=== PATIENT | male | born 1960 | race Caucasian/White ===

== ENCOUNTER 2023-08-27 13:15 | Outpatient (CLI) | payer OTHER, SELFPAY | END 2023-08-27 13:16 | disposition home or self-care (01) | PROVIDERS: PCP Family Medicine; Visit Provider Nurse Practitioner Family | DX: I87.312 Chronic venous hypertension (idiopathic) with ulcer of left lower extremity (principal); I89.0 Lymphedema, not elsewhere classified; L97.822 Non-pressure chronic ulcer of other part of left lower leg with fat layer exposed; E66.9 Obesity, unspecified; Z68.39 Body mass index [BMI] 39.0-39.9, adult | CPT/HCPCS: 11042; 87070; G0463 ==

== ENCOUNTER 2023-09-03 14:49 | Outpatient (CLI) | payer OTHER, SELFPAY ==
--- NOTE | 2023-09-03 16:00 | US_ITS ---
Patient: YOLIE FUENTES Facility:?[facility] Patient ID:?[id number] Site Patient ID:?[id number]. Site :?[id number] Study:?US-Extremity Left LEV LT-09/03/2023 4:43:10 PM Ordering Physician:HOWIE TOMAS CNP Final Report: INDICATION: Leg pain and swelling. TECHNIQUE: Ultrasound venous duplex lower left extremity. Compression venous exam was performed using hanson-scale, color Doppler, and spectral Doppler analysis. COMPARISON: None. FINDINGS: Deep veins: Limited evaluation of the deep veins of the calf secondary to edema and bandage. Sonographic imaging demonstrates the left common femoral, deep femoral, superficial femoral, popliteal and the contralateral right common femoral veins to be fully compressible with normal color Doppler blood flow. Superficial veins: Greater saphenous vein is fully compressible. No popliteal cyst. IMPRESSION: Limited evaluation of the deep veins of the calf secondary to edema and bandage. Otherwise, no acute DVT in the visualized left lower extremity deep veins. Dictated by Pavan Gamez MD @ 09/03/2023 5:03:28 PM Signed by:?Pavan Gamez MD @09/03/2023 5:03:28 PM (Electronic Signature)
== END 2023-09-03 14:50 | disposition home or self-care (01) ==
PROVIDERS: PCP Family Medicine; Visit Provider Nurse Practitioner Family
DX: I87.312 Chronic venous hypertension (idiopathic) with ulcer of left lower extremity (principal); L97.828 Non-pressure chronic ulcer of other part of left lower leg with other specified severity; I89.0 Lymphedema, not elsewhere classified; M79.662 Pain in left lower leg
CPT/HCPCS: 93971; G0463

== ENCOUNTER 2023-09-10 15:46 | Outpatient (CLI) | payer OTHER, SELFPAY | END 2023-09-10 15:47 | disposition home or self-care (01) | LOC: WOUND 15:46 | PROVIDERS: PCP Family Medicine; Visit Provider Nurse Practitioner Family | DX: I87.312 Chronic venous hypertension (idiopathic) with ulcer of left lower extremity (principal); I89.0 Lymphedema, not elsewhere classified; L97.822 Non-pressure chronic ulcer of other part of left lower leg with fat layer exposed | CPT/HCPCS: 11042 ==

== ENCOUNTER 2023-09-13 15:50 | Outpatient (CLI) | payer OTHER, SELFPAY | END 2023-09-13 15:51 | disposition home or self-care (01) | LOC: WOUND 15:50 | PROVIDERS: PCP Family Medicine; Visit Provider Nurse Practitioner Family | DX: I87.312 Chronic venous hypertension (idiopathic) with ulcer of left lower extremity (principal); I89.0 Lymphedema, not elsewhere classified; L97.822 Non-pressure chronic ulcer of other part of left lower leg with fat layer exposed | CPT/HCPCS: 29581 ==

== ENCOUNTER 2023-09-17 15:43 | Outpatient (CLI) | payer OTHER, SELFPAY | END 2023-09-17 15:44 | disposition home or self-care (01) | LOC: WOUND 15:43 | PROVIDERS: PCP Family Medicine; Visit Provider Nurse Practitioner Family | DX: I87.312 Chronic venous hypertension (idiopathic) with ulcer of left lower extremity (principal); I89.0 Lymphedema, not elsewhere classified; L97.822 Non-pressure chronic ulcer of other part of left lower leg with fat layer exposed | CPT/HCPCS: 97597 ==

== ENCOUNTER 2023-09-20 15:31 | Outpatient (CLI) | payer OTHER, SELFPAY | END 2023-09-20 15:32 | disposition home or self-care (01) | LOC: WOUND 15:31 | PROVIDERS: PCP Family Medicine; Visit Provider Nurse Practitioner Family | DX: I87.312 Chronic venous hypertension (idiopathic) with ulcer of left lower extremity (principal); I89.0 Lymphedema, not elsewhere classified; L97.222 Non-pressure chronic ulcer of left calf with fat layer exposed | CPT/HCPCS: 29581 ==

== ENCOUNTER 2023-09-27 12:58 | Outpatient (CLI) | payer OTHER, SELFPAY | END 2023-09-27 12:59 | disposition home or self-care (01) | LOC: WOUND 12:58 | PROVIDERS: PCP Family Medicine; Visit Provider Nurse Practitioner Family | DX: I89.0 Lymphedema, not elsewhere classified (principal); L97.822 Non-pressure chronic ulcer of other part of left lower leg with fat layer exposed; I87.312 Chronic venous hypertension (idiopathic) with ulcer of left lower extremity | CPT/HCPCS: 11042 ==

== ENCOUNTER 2023-10-01 15:17 | Outpatient (CLI) | payer OTHER, SELFPAY | END 2023-10-01 15:18 | disposition home or self-care (01) | LOC: WOUND 15:17 | PROVIDERS: PCP Family Medicine; Visit Provider Nurse Practitioner Family | DX: I87.312 Chronic venous hypertension (idiopathic) with ulcer of left lower extremity (principal); I89.0 Lymphedema, not elsewhere classified; L97.822 Non-pressure chronic ulcer of other part of left lower leg with fat layer exposed | CPT/HCPCS: 11042 ==

== ENCOUNTER 2023-10-08 15:48 | Outpatient (CLI) | payer OTHER, SELFPAY | END 2023-10-08 15:49 | disposition home or self-care (01) | LOC: WOUND 15:48 | PROVIDERS: PCP Family Medicine; Visit Provider Family Medicine | DX: I87.312 Chronic venous hypertension (idiopathic) with ulcer of left lower extremity (principal); I89.0 Lymphedema, not elsewhere classified; L97.828 Non-pressure chronic ulcer of other part of left lower leg with other specified severity; Z72.0 Tobacco use | CPT/HCPCS: G0463 ==

== ENCOUNTER 2023-10-15 15:51 | Outpatient (CLI) | payer OTHER, SELFPAY | END 2023-10-15 15:52 | disposition home or self-care (01) | LOC: WOUND 15:51 | PROVIDERS: PCP Family Medicine; Visit Provider Nurse Practitioner Family | DX: I87.312 Chronic venous hypertension (idiopathic) with ulcer of left lower extremity (principal); I89.0 Lymphedema, not elsewhere classified; L97.822 Non-pressure chronic ulcer of other part of left lower leg with fat layer exposed | CPT/HCPCS: 97597 ==

== ENCOUNTER 2023-10-22 15:50 | Outpatient (CLI) | payer OTHER, SELFPAY | END 2023-10-22 15:51 | disposition home or self-care (01) | LOC: WOUND 15:50 | PROVIDERS: PCP Family Medicine; Visit Provider Nurse Practitioner Family | DX: I87.312 Chronic venous hypertension (idiopathic) with ulcer of left lower extremity (principal); L97.822 Non-pressure chronic ulcer of other part of left lower leg with fat layer exposed; I89.0 Lymphedema, not elsewhere classified; Z72.0 Tobacco use | CPT/HCPCS: 97597 ==

== ENCOUNTER 2023-10-29 15:45 | Outpatient (CLI) | payer OTHER, SELFPAY | END 2023-10-29 15:46 | disposition home or self-care (01) | LOC: WOUND 15:45 | PROVIDERS: PCP Family Medicine; Visit Provider Nurse Practitioner Family | DX: I87.312 Chronic venous hypertension (idiopathic) with ulcer of left lower extremity (principal); L97.822 Non-pressure chronic ulcer of other part of left lower leg with fat layer exposed; I89.0 Lymphedema, not elsewhere classified | CPT/HCPCS: 97597 ==

== ENCOUNTER 2023-11-05 15:48 | Outpatient (CLI) | payer OTHER, SELFPAY | END 2023-11-05 15:49 | disposition home or self-care (01) | LOC: WOUND 15:48 | PROVIDERS: PCP Family Medicine; Visit Provider Nurse Practitioner Family | DX: I87.312 Chronic venous hypertension (idiopathic) with ulcer of left lower extremity (principal); I89.0 Lymphedema, not elsewhere classified; L97.822 Non-pressure chronic ulcer of other part of left lower leg with fat layer exposed; Z72.0 Tobacco use | CPT/HCPCS: 11042 ==

== ENCOUNTER 2023-11-12 13:59 | Outpatient (CLI) | payer OTHER, SELFPAY | END 2023-11-12 14:00 | disposition home or self-care (01) | LOC: WOUND 13:59 | PROVIDERS: PCP Family Medicine; Visit Provider Physician Assistant Surgical | DX: I87.312 Chronic venous hypertension (idiopathic) with ulcer of left lower extremity (principal); L97.822 Non-pressure chronic ulcer of other part of left lower leg with fat layer exposed; I89.0 Lymphedema, not elsewhere classified | CPT/HCPCS: 11042 ==

== ENCOUNTER 2023-11-26 15:40 | Outpatient (CLI) | payer OTHER, SELFPAY | END 2023-11-26 15:41 | disposition home or self-care (01) | LOC: WOUND 15:40 | PROVIDERS: PCP Family Medicine; Visit Provider Nurse Practitioner Family | DX: I87.312 Chronic venous hypertension (idiopathic) with ulcer of left lower extremity (principal); I89.0 Lymphedema, not elsewhere classified; L97.822 Non-pressure chronic ulcer of other part of left lower leg with fat layer exposed | CPT/HCPCS: 11042 ==

== ENCOUNTER 2023-12-03 15:42 | Outpatient (CLI) | payer OTHER, SELFPAY | END 2023-12-03 15:43 | disposition home or self-care (01) | LOC: WOUND 15:42 | PROVIDERS: PCP Family Medicine; Visit Provider Nurse Practitioner Family | DX: I87.312 Chronic venous hypertension (idiopathic) with ulcer of left lower extremity (principal); I89.0 Lymphedema, not elsewhere classified; L97.822 Non-pressure chronic ulcer of other part of left lower leg with fat layer exposed | CPT/HCPCS: 97597 ==

== ENCOUNTER 2023-12-17 15:49 | Outpatient (CLI) | payer OTHER, SELFPAY | END 2023-12-17 15:50 | disposition home or self-care (01) | LOC: WOUND 15:49 | PROVIDERS: PCP Family Medicine; Visit Provider Nurse Practitioner Family | DX: I87.312 Chronic venous hypertension (idiopathic) with ulcer of left lower extremity (principal); I89.0 Lymphedema, not elsewhere classified; L97.828 Non-pressure chronic ulcer of other part of left lower leg with other specified severity | CPT/HCPCS: 97602; G0463 ==

== ENCOUNTER 2023-12-31 15:36 | Outpatient (CLI) | payer OTHER, SELFPAY | END 2023-12-31 15:37 | disposition home or self-care (01) | LOC: WOUND 15:37 | PROVIDERS: PCP Family Medicine; Visit Provider Nurse Practitioner Family | DX: I87.312 Chronic venous hypertension (idiopathic) with ulcer of left lower extremity (principal); I89.0 Lymphedema, not elsewhere classified; L97.822 Non-pressure chronic ulcer of other part of left lower leg with fat layer exposed | CPT/HCPCS: 97597 ==

== ENCOUNTER 2024-01-14 15:36 | Outpatient (CLI) | payer OTHER, SELFPAY | END 2024-01-14 15:37 | disposition home or self-care (01) | LOC: WOUND 15:36 | PROVIDERS: PCP Family Medicine; Visit Provider Nurse Practitioner Family | DX: I87.312 Chronic venous hypertension (idiopathic) with ulcer of left lower extremity (principal); I89.0 Lymphedema, not elsewhere classified; L97.822 Non-pressure chronic ulcer of other part of left lower leg with fat layer exposed | CPT/HCPCS: 97597 ==

== ENCOUNTER 2024-01-27 15:33 | Outpatient (CLI) | payer OTHER, SELFPAY | END 2024-01-27 15:34 | disposition home or self-care (01) | LOC: WOUND 15:33 | PROVIDERS: PCP Family Medicine; Visit Provider Nurse Practitioner Family | DX: I87.312 Chronic venous hypertension (idiopathic) with ulcer of left lower extremity (principal); I89.0 Lymphedema, not elsewhere classified; L97.822 Non-pressure chronic ulcer of other part of left lower leg with fat layer exposed | CPT/HCPCS: 97597 ==

== ENCOUNTER 2024-02-10 15:42 | Outpatient (CLI) | payer OTHER, SELFPAY | END 2024-02-10 15:43 | disposition home or self-care (01) | LOC: WOUND 15:42 | PROVIDERS: PCP Family Medicine; Visit Provider Nurse Practitioner Family | DX: I87.312 Chronic venous hypertension (idiopathic) with ulcer of left lower extremity (principal); I89.0 Lymphedema, not elsewhere classified; L97.228 Non-pressure chronic ulcer of left calf with other specified severity | CPT/HCPCS: G0463 ==

== ENCOUNTER 2024-02-24 15:26 | Outpatient (CLI) | payer OTHER, SELFPAY | END 2024-02-24 15:27 | disposition home or self-care (01) | PROVIDERS: PCP Family Medicine; Visit Provider Nurse Practitioner Family | DX: I87.312 Chronic venous hypertension (idiopathic) with ulcer of left lower extremity (principal); I89.0 Lymphedema, not elsewhere classified; L97.828 Non-pressure chronic ulcer of other part of left lower leg with other specified severity; Z72.0 Tobacco use | CPT/HCPCS: G0463 ==